=== PATIENT | male | born 1985 | race Caucasian/White ===

== ENCOUNTER → 2019-07-12 | Outpatient (CLI) | payer BC | LOC: LAB.O 14:11 | PROVIDERS: ATTEND Orthopaedic Surgery | DX: Z01.818 Encounter for other preprocedural examination (principal) ==

== ENCOUNTER 2019-07-26 05:30 | Day surgery (SDC) | payer BC ==
[2019-07-26] MEDS ORDERED: ONDANSETRON INJ 4 MG/2 ML VIAL ONE (07:00)
[2019-07-26] MEDS ORDERED: DEXAMETHASONE INJ 10 MG/ML VIAL ONE (07:00)
[2019-07-26] MEDS ORDERED: PROPOFOL 200 MG/20 ML VIAL IV ONE (07:00)
[2019-07-26] MEDS ORDERED: LIDOCAINE 1% 10 ML VIAL INJ ONE (07:00)
[2019-07-26] MEDS ORDERED: KETOROLAC TROMETHAMINE INJ 30 MG/ML VIAL ONE (07:00)
[2019-07-26] MEDS ORDERED: SODIUM CHL 0.9% 100ML MINI-BAG 100 ML IVPB ONE (07:57)
[2019-07-26] MEDS ORDERED: LACTATED RINGERS 1,000 ML ONE (07:57)
[2019-07-26] MEDS ORDERED: ceFAZolin SODIUM 1 GM VIAL ONE ×2 (07:57→09:29)
--- NOTE | 2019-07-26 08:12 | HP ---
CHIEF COMPLAINT: Left arm pain and numbness. HISTORY OF PRESENT ILLNESS: Jarad is a 34-year-old male with a history of previous ulnar nerve transposition. He initially did well with that, however, he has been having some symptoms along the medial aspect of the elbow. He has occasional pain with activity in addition to spontaneous paresthesias. He denies any recent trauma, any radiation of pain or neurologic symptoms. He has relieving factors of not using it in certain ways, but aggravating factors include lifting and certain movements of the arm. He has tried conservative measures, however, his pain still rates as a 7 at times. After discussing the risks, benefits and alternatives to ulnar nerve release, he has given informed consent. PAST SURGICAL HISTORY: 1. Ulnar nerve transposition. MEDICATIONS: 1. Propecia. PAIN CONTRACT: None. ALLERGIES: NO KNOWN DRUG ALLERGIES. CODE STATUS: Full code. IMMUNIZATIONS: Up to date. SOCIAL HISTORY: The patient does not drink, smoke or use any illicit drugs. FAMILY HISTORY: None pertinent to today's complaint. REVIEW OF SYSTEMS: Negative except as indicated in the History of Present Illness. HEENT: The patient reports no symptoms. RESPIRATORY: The patient reports no symptoms. CARDIOVASCULAR: The patient reports no symptoms. GASTROINTESTINAL: The patient reports no symptoms GENITOURINARY: The patient reports no symptoms. MUSCULOSKELETAL: Negative except as noted in History of Present Illness. SKIN: The patient reports no symptoms. NEUROLOGIC: The patient reports no symptoms. PHYSICAL EXAMINATION: VITAL SIGNS: Blood pressure 146/91. Pulse 85. Height 6'2". Weight 287 pounds. MENTAL STATUS: The patient is awake, alert, and is able to give a good history and participate in the physical. The patient is oriented to person, place and time. SKIN: Normal tone and turgor. HEENT: Normocephalic, atraumatic. Pupils equal, round and reactive. Mucosal membranes are moist. NECK: Normal range of motion. No thyromegaly, no lymphadenopathy. CHEST: Normal respiratory excursion. CARDIAC: Regular rate and rhythm. No murmurs, rubs or gallops. MUSCULOSKELETAL: The bilateral lower extremities show full active range of motion without pain. He has intact sensation. There is no malalignment or deformity. The extremity is warm and well perfused. He has 5/5 strength in both extremities. Skin is intact. He maintains full range of motion in the hip, ankle and digits. There is no varus or valgus laxity at the knee and there is no anterior or posterior laxity. The right upper extremity shows full range of motion of the shoulder, elbow, wrist and digits. Sensation is intact throughout. There is no malalignment, no deformity. He has intact skin. [employer] strength is 5/5. There is no crepitus. He has 2+ capillary refill and reflexes equivalent to the contralateral side. The left upper extremity shows full range of motion of the shoulder, elbow, wrist and digits. He has a positive Tinel's at the elbow although it is on the medial aspect of the epicondyle secondary to previous transposition. He has pretty significant pain with palpation in that area as well. There is no crepitus with range of motion, no crepitus with palpation, no increased warmth and no erythema. He has occasional paresthesias with certain movement of the arm including fully straightening the arm. He gets his paresthesias on the ulnar border of the forearm and hand. [employer] strength is 5/5. He has full abduction strength. There is no obvious thenar or hypothenar atrophy at this time. ASSESSMENT: 1. Ulnar nerve compression. PLAN: The plan at this point is for ulnar nerve transposition and release. We have discussed the risks, benefits, and alternatives to that and the patient has given informed consent. #[id number] [facility]
[2019-07-26] MEDS ORDERED: fentaNYL CITRATE INJ 50 MCG/ML AMP ONE ×3 (08:35→12:14)
[2019-07-26] MEDS ORDERED: MIDAZOLAM INJ 2 MG/2 ML VIAL ONE (08:35)
[2019-07-26] MEDS ORDERED: VANCOMYCIN HCL INJ 1,000 MG VIAL IVPB ONE (09:29)
[2019-07-26] MEDS ORDERED: BUPIVACAINE LIPOSOME 13.3 MG/ML VIAL INJ ONE (09:29)
[2019-07-26] MEDS ORDERED: BUPIVACAINE 0.5% 30 ML VIAL INJ ONE (09:29)
[2019-07-26] MEDS ORDERED: ACETAMINOPHEN IV 1000MG 0 ML ONE (10:30)
[2019-07-26] MEDS ORDERED: ACETAMINOPHEN IV 1000MG 100 ML ONE (10:33)
[2019-07-26] MEDS ORDERED: LACTATED RINGERS 1,000 ML IVS ONE (11:37)
[2019-07-26] MEDS ORDERED: fentaNYL CITRATE INJ 50 MCG/ML AMP IV ONE ×4 (11:55→12:30)
[2019-07-26] MEDS ORDERED: HYDROcodone 5MG/APAP 325MG 1 EA TAB ONE (12:56)
[2019-07-26 13:40] VITALS: BP 111/70; TEMP 96.3; O2SAT 95
--- NOTE | 2019-07-27 08:09 | OP ---
DATE OF PROCEDURE: 07/26/19 PREOPERATIVE DIAGNOSIS: 1. Ulnar nerve entrapment. POSTOPERATIVE DIAGNOSIS: 1. Ulnar nerve entrapment. PROCEDURE: 1. Ulnar nerve release. SURGEON: Pieter Mantilla MD. RN ANESTHESIOLOGY: Simeon Gautam CST, SA-C. ANESTHESIA: General anesthesia. COMPLICATIONS: None. FINDINGS: Entrapment of the ulnar nerve medial and anterior to the medial epicondyle. INDICATION: Mr. Grey has a history of ulnar nerve transposition. It was successful, however, he developed symptoms after return to weight lifting of some pain and paresthesias. On physical examination, it appeared as though he was having some type of entrapment in the area of the ulnar nerve near the point of transposition. Because of those findings, we discussed the options. After discussing the risks, benefits and alternatives to operative therapy, the patient gave informed consent for that. PROCEDURE: The patient was brought to the Operating Room and placed in the supine position. General anesthesia was induced and the patient's arm was sterilely prepped and draped. After prepping and draping, an incision was made in the in line with his previous incision. The medial flap was elevated and the nerve was identified proximally. After identification of the nerve, multiple adhesions around the nerve were lysed. After that, the arm was flexed and extended to ensure that the nerve was released and somewhat mobile at the previous point. After that, the wound was very thoroughly irrigated. It was closed with interrupted and running subcuticular stitches. Sterile dressings were placed. The patient was awoken from anesthesia and taken to Recovery. POSTOPERATIVE PLAN: The patient will be limited with regards to lifting and range of motion right now. We will see him back again in two days. #[id number] [facility]
== END 2019-07-26 13:35 | disposition home or self-care (01) ==
LOC: AMB 05:30
PROVIDERS: ATTEND Orthopaedic Surgery
DX: G56.22 Lesion of ulnar nerve, left upper limb (principal)
CPT/HCPCS: 01710; 64718; 80048; 80307; 85025; J0690; J1100; J1885; J2250; J2405; J3010; J3370; J3490; J7050; J7120

== ENCOUNTER → 2020-04-01 | Outpatient (CLI) | payer BC | LOC: GMAE 10:18 | PROVIDERS: ATTEND Family Medicine | DX: R94.8 Abnormal results of function studies of other organs and systems (principal) ==